=== PATIENT | male | born 2005 | race Caucasian/White ===

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

== ENCOUNTER 2024-10-16 23:26 | Emergency (ER) | payer SELFPAY ==
[2024-10-16 23:29] VITALS: BP 141/97; PULSE 124; RESP 18; TEMP 36.4; O2SAT 93
[2024-10-16 23:44] VITALS: BP 141/97; PULSE 124; RESP 18; TEMP 36.4; O2SAT 93
[2024-10-16] MEDS: Ondansetron 4 MG/2 ML VIAL (23:46)
[2024-10-16] MEDS: Droperidol 5 MG/2 ML VIAL 1.25 MG IVP (23:50)
[2024-10-16] MEDS: Normal Saline 1,000 ML 1000 ML IV (23:50)
[2024-10-16 23:52] LABS: Abs Immature Grans 0.05 10^3/uL (0.0-0.06); Absolute Basophil Count 0.06 10^3/uL (0.0-0.2); Absolute Neutrophil Count 16.24 10^3/uL (1.2-6.7); Basophils % 0.3 %; Eosinophils % 1.6 %; HCT 53.9 % (40.0-50.0); HGB 18.2 g/dL (13.5-17.5); Immature Grans % 0.3 %; Lymphocytes % 6.4 %; MCH 28.6 pg (27.0-33.0); MCHC 33.8 % (32.0-36.0); MCV 85 fL (80-95); MPV 9.8 fL (8.0-11.0); Monocytes % 5.3 %; Neutrophils % 86.1 %; Platelet Count 341 10^3/uL (130-400); RBC 6.36 10^6/uL (4.36-5.78); RDW 11.9 % (11.8-14.1); RDW-SD 36.4 fL; WBC 18.86 10^3/uL (4.4-10.8)
[2024-10-16 23:56] LABS: Absolute Lymphocyte Count 1.21 10^3/uL (1.2-3.4)
[2024-10-17 00:10] LABS: ALT 17 U/L (16-63); AST 9 U/L (15-37); Albumin 5.3 g/dL (3.4-5.0); Alkaline Phosphatase 97 U/L (46-116); Anion Gap 8.6 mmol/L (3-11); BUN 18 mg/dL (7-18); CO2 32.4 mmol/L (21.0-32.0); CREATININE 1.1 mg/dL (0.70-1.30); Chloride 104 mmol/L (98-107); Estimated GFR 98.56 (mL/min/1.73m2); Glucose 139 mg/dL (74-106); Lipase 41 U/L (<78); Potassium 4.1 mmol/L (3.5-5.1); Sodium 145 mmol/L (136-145); Total Protein 9.1 g/dL (6.4-8.2)
[2024-10-17 00:16] LABS: Calcium 10.8 mg/dL (8.5-10.1)
[2024-10-17 00:47] LABS: Diff Comment RBC Morph Reviewed; RBC Morphology Normal
[2024-10-17 01:40] VITALS: BP 138/88; PULSE 95; RESP 16; TEMP 36.6; O2SAT 98
--- NOTE | 2024-10-17 01:43 | ED.GENADUL_ITS ---
Discharge Plan Disposition Patient Disposition: Home Condition: Good Discharge Details Clinical Impression: Vomiting Primary Care Provider: Amarilis,Local ED Provider: Cj Torres Home Meds and New Rx's Prescriptions: No Action No Known Home Meds Discharge Instructions Instructions: Nausea and Vomiting, Adult ED Additional Instructions: At this time after fluids and medication you have had a notable improvement. You have been able to tolerate fluids well. Your labs have returned, and while you do show a mildly elevated white count, the rest of your labs remained stable after hydration. Thankfully on your exam there is no evidence of tenderness in the right lower quadrant to suggest appendicitis. Your lipase is normal and so there is no evidence of pancreatitis. I suspect that your symptoms may have been secondary to something that you ate this evening. It could also been from a mild viral etiology. Please drink plenty of fluids and stay well-hydrated. Take the Zofran as needed for nausea. Stick with a mild bland liquid diet for the next day or 2. If you notice any worsening of your symptoms, or any new symptoms such as vomiting, diarrhea, fever, chills, shortness of breath, chest pain, numbness, weakness, or fainting , please return immediately to the emergency department for reevaluation. Please follow up with your primary care provider as soon as possible for reassessment and reevaluation. As always, it was a pleasure participating in your medical care today. HPI General Date/Time Provider Initiated Documentation: 10/16/24 23:45 . HPI Narrative: 19-year-old male with a past medical history of occasional cannabis use, prior surgery for hydronephrosis as a young child, presents today for evaluation of vomiting. Patient states that today his diet consisted of a significant amount of sugar cookies, some Ramen soup, and then this evening at about 630 he developed mild achy cramps throughout his abdomen began having multiple episodes of vomiting. He has vomited multiple times throughout the evening. He has not been able to keep anything down. He denies any blood. He denies any bloody diarrhea. No other complaints at this time. He drank some alcohol yesterday. He admits to mild achiness throughout, but he denies any locality or focality to the right lower quadrant. No other complaints. Related Data Home Medications ?Medication ?Instructions ?Recorded ?Confirmed Unknown [No Known Home Meds] 10/16/24 10/16/24 Allergies Allergy/AdvReac Type Severity Reaction Status Date / Time No Known Allergies Allergy Verified 10/16/24 23:49 General Stated Complaint: Nausea/Vomit/Diar JACQUELIN: 3 Exam Narrative Exam Narrative: 1.Const: Well-nourished, Well-developed, appearing stated age 2.Eyes: PERRL, no conjunctival injection, and symmetrical lids. 3.ENT: Atraumatic external nose and ears. Notably dry MM. Neck: Symmetric, trachea midline, No thyromegaly. 4.CVS: +S1/S2, Peripheral pulses 2+ and equal in all extremities. Brisk capillary refill in all extremities. 5.RESP: Unlabored respiratory effort. Clear to auscultation bilaterally. No wheezes rales or rhonchi 6.GI: Soft, nondistended, reduced bowel sounds. Minimal achiness throughout. But no pain in the right lower quadrant or left lower quadrant. 7.MSK: Normocephalic/Atraumatic, Extremities w/o deformity or ttp No cyanosis or clubbing, Normal movement of all extremities 8.Skin: Warm, Dry. No rashes or lesions. 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 Sensation grossly intact, no focal neurologic deficits. 10.Psych: (AAO) x3. Appropriate mood and affect Course Vital Signs Vital signs: Vital Signs Temperature 36.4 C 10/16/24 23:29 Pulse 124 H 10/16/24 23:29 Respiratory Rate 18 10/16/24 23:29 Blood Pressure 141/97 H 10/16/24 23:29 Pulse Oximetry 93 10/16/24 23:29 Temperature 36.6 C 10/17/24 01:40 Temperature Source Temporal Artery Scan 10/16/24 23:44 Pulse 95 H 10/17/24 01:40 Respiratory Rate 16 10/17/24 01:40 Blood Pressure 138/88 10/17/24 01:40 Blood Pressure Position Sitting 10/16/24 23:44 Pulse Oximetry 98 10/17/24 01:40 Oxygen Delivery Method Room Air 10/16/24 23:44 Oxygen Flow Rate 0 10/16/24 23:29 Pain Level 4 10/16/24 23:44 Lab/Test Results Lab/Test Results: Laboratory Tests Range/Units 10/16/24 23:40 WBC (4.4-10.8) 10^3/uL 18.86 H RBC (4.36-5.78) 10^6/uL 6.36 H Hgb (13.5-17.5) g/dL 18.2 H Hct (40.0-50.0) % 53.9 H MCV (80-95) fL 85 MCH (27.0-33.0) pg 28.6 MCHC (32.0-36.0) % 33.8 RDW (11.8-14.1) % 11.9 Plt Count (130-400) 10^3/uL 341 MPV (8.0-11.0) fL 9.8 Immature Gran % % 0.3 Neutrophils % % 86.1 Lymphocytes % % 6.4 Monocytes % % 5.3 Eosinophils % % 1.6 Basophils % % 0.3 Nucleated RBC % (0.0-0.3) % 0.0 Absolute Neutrophils (1.2-6.7) 10^3/uL 16.24 H Absolute Lymphocytes (1.2-3.4) 10^3/uL 1.21 Absolute Monocytes (0.1-0.8) 10^3/uL 1.00 H Absolute Eosinophils (0.0-0.7) 10^3/uL 0.30 Absolute Basophils (0.0-0.2) 10^3/uL 0.06 RBC Morphology Normal Sodium (136-145) mmol/L 145 Potassium (3.5-5.1) mmol/L 4.1 Chloride (98-107) mmol/L 104 Carbon Dioxide (21.0-32.0) mmol/L 32.4 H Anion Gap (3-11) mmol/L 8.6 BUN (7-18) mg/dL 18 Creatinine (0.70-1.30) mg/dL 1.1 Est GFR (CKD-EPI 2020) (mL/min/1.73m2) 98.56 Glucose (74-106) mg/dL 139 H Calcium (8.5-10.1) mg/dL 10.8 H Total Bilirubin (0.2-1.0) mg/dL 0.50 AST (15-37) U/L 9 L ALT (16-63) U/L 17 Alkaline Phosphatase (46-116) U/L 97 Total Protein (6.4-8.2) g/dL 9.1 H Albumin (3.4-5.0) g/dL 5.3 H Lipase (<78) U/L 41 Medical Decision Making 19-year-old male with a past medical history of occasional cannabis use, prior surgery for hydronephrosis as a young child, presents today for eval uation of vomiting. Patient states that today his diet consisted of a significant amount of sugar cookies, some Ramen soup, and then this evening at about 630 he developed mild achy cramps throughout his abdomen began having multiple episodes of vomiting. He has vomited multiple times throughout the evening. He has not been able to keep anything down. He denies any blood. He denies any bloody diarrhea. No other complaints at this time. He drank some alcohol yesterday. He admits to mild achiness throughout, but he denies any locality or focality to the right lower quadrant. No other complaints. Exam demonstrates dry mucous membranes, mild achiness throughout the abdomen, but no right lower quadrant tenderness to suggest appendicitis. No abdominal distention to suggest obstruction, and no signs of an acute surgical abdomen. Symptoms appear most consistent from a gastroenteritis potentially from a virus or foodborne illness. Cannabinoid hyperemesis syndrome is on the differential but less likely. We will treat with Zofran and droperidol, rehydrate with a liter of normal saline, check for pancreatitis electrolyte abnormalities, monitor closely and reassess. 1:53 AM Laboratory workup has returned, patient does show evidence of an elevated white count with mild left shift but no evidence of bandemia. Electrolytes relatively benign, calcium slightly elevated to 10.8, which has been treated with a liter of normal saline. Glucose normal. Lipase normal, transaminases normal. On reassessment patient has complete resolution of his symptoms. Nausea has resolved. He has no abdominal pain. Repeat focused abdominal exam was performed and he has no tenderness whatsoever, no tenderness in the right lower or left lower quadrants. He states that he feels well and would like to go home. Patient was still observed for an additional hour, he was given a p.o. trial and tolerated this well with no vomiting. Patient will be discharged home with Zofran. Discussed bland diet. Discussed red flags which to return. Symptoms at this time appear clinically inconsistent with appendicitis, pancreatitis, volvulus or obstruction. I have extensively reviewed the treatme nt plan and discharge instructions with the patient and their family. I have addressed all patient concerns at this time. The patient and family was made aware of what symptoms to monitor for that would warrant a return to the emergency department. Discussed the plan with the patient and family, they demonstrate verbal understanding and agreement with our assessment and plan at this time. The documentation in this chart was dictated using [employer] dictation software. Please excuse any dictation errors. Quality:SDOH Health Related Social Needs: No Data to Display PFSH All Active Problems (Updated 10/17/24 @ 01:44 by Cj Torres DO) Vomiting (Acute) Abscess of finger, left (Acute) Social History Smoking/Tobacco Use Status: Never Smoking risk assessment performed?: Yes Alcohol Intake: current Drug use: Never Substance use type: marijuana Details: last used marijuana earlier today 10/16/24 Housing: house Do you feel safe at home: Yes (FATHER IN [employer]) Do you feel safe in your relationship?: Yes
[2024-10-17] MEDS: Ondansetron O.D.T. 4 MG TABEF, 3 TABS/BTL PO (01:47)
== END 2024-10-17 01:40 | disposition home or self-care (01) ==
PROVIDERS: Emergency Provider Student in an Organized Health Care Education/Training Program
DX: R11.10 Vomiting, unspecified (principal)
CPT/HCPCS: 36415; 80053; 83690; 96361; 96374; 99284; 85025; J1790; J2405

== ENCOUNTER 2025-05-21 05:40 | Emergency (ER) | payer SELFPAY ==
[2025-05-21] VITALS (16 sets, daily range): BP systolic 130–171; BP diastolic 92–97; PULSE 59–89; RESP 13–25; TEMP 36.3; O2SAT 95–99
--- NOTE | 2025-05-21 05:30 | RT.EKG_ITS ---
APPROVED REPORT Exam: Resting ECG Reason for Exam: irregular heart beat Patient Location: E HR:69 bpm ECG Measurements Heart Rate 69 AXIS VA 147 P 79 QRSd 93 QRS 75 QT 387 T 69 QTc 414 Conclusion Sinus arrhythmia...V-rate 59- 82, variation>10% ST elevation suggests acute pericarditis...ST >0.10mV, ant/lat/inf
--- NOTE | 2025-05-21 06:00 | DI.RAD_ITS ---
Exam(s) XR CHEST 2V PA LATERAL EXAM: XR CHEST 2V PA LATERAL CLINICAL HISTORY: chest pain. TECHNIQUE: 2D digital imaging was performed. COMPARISON: No exams were available for comparison FINDINGS: 2 views: Heart size is normal. The mediastinum is not widened. Lungs are clear. No infiltrates nor pleural effusions. IMPRESSION: No acute pulmonary findings. DATA REPOSITORY: RADIATION DOSE DELIVERED:
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
[2025-05-21 06:50] LABS: Abs Immature Grans 0.01 10^3/uL (0.0-0.06); HCT 43.6 % (40.0-50.0); HGB 15.7 g/dL (13.5-17.5); Immature Grans % 0.1 %; MCH 28.5 pg (27.0-33.0); MCHC 36.0 % (32.0-36.0); MCV 79 fL (80-95); MPV 9.9 fL (8.0-11.0); Platelet Count 331 10^3/uL (130-400); RBC 5.50 10^6/uL (4.36-5.78); RDW 11.4 % (11.8-14.1); RDW-SD 32.7 fL; WBC 7.29 10^3/uL (4.4-10.8)
[2025-05-21 07:04] LABS: ESR < 1 mm/hr (0-15)
[2025-05-21 07:07] LABS: ALT 22 U/L (16-63); AST 14 U/L (15-37); Albumin 4.7 g/dL (3.4-5.0); Alkaline Phosphatase 75 U/L (46-116); Anion Gap 9.7 mmol/L (3-11); BUN 11 mg/dL (7-18); Bilirubin, Total 1.1 mg/dL (0.2-1.0); CO2 28.3 mmol/L (21.0-32.0); Calcium 9.9 mg/dL (8.5-10.1); Chloride 102 mmol/L (98-107); Estimated GFR 124.61 (mL/min/1.73m2); Glucose 114 mg/dL (74-106); Magnesium 2.0 mg/dL (1.8-2.4); Potassium 4.0 mmol/L (3.5-5.1); Sodium 140 mmol/L (136-145); TSH (W/Ref FT4) 1.82 uIU/mL (0.36-3.74); Total Protein 7.7 g/dL (6.4-8.2); Troponin I 8 ng/L (<or=76)
--- NOTE | 2025-05-21 07:18 | DI.VRAD_ITS ---
PROCEDURE INFORMATION: Exam: XR Chest Exam date and time: 05/21/2025 6:35 AM Age: 20 years old Clinical indication: Chest pressure; Chest pain TECHNIQUE: Imaging protocol: Radiologic exam of the chest. Views: 2 views. COMPARISON: No relevant prior studies available. FINDINGS: Lungs: Unremarkable. No consolidation. Pleural spaces: Unremarkable. No pleural effusion. No pneumothorax. Heart/Mediastinum: Unremarkable. No cardiomegaly. Bones/joints: Unremarkable. IMPRESSION: No acute findings. Dictated and Authenticated by: Erica Lay MD. Orderin Mereidth Montano MD
--- NOTE | 2025-05-21 07:19 | W.EDPROG ---
Date of service: 05/21/25 Time of Service: 07:19 Medical Decision Making Was asked to perform bedside POCUS secondary to ED volume. Bedside POCUS was performed, no evidence of pericardial effusion, reduced ejection fraction, no abnormality could be seen on limited bedside echo. Findings were discussed with attending Dr. Sinai Harper Discharge Plan Discharge Details Chief Complaint: Palpitatns Primary Care Provider: Amarilis,Local ED Provider: Charmaine Harper Home Meds and New Rx's Prescriptions: No Action hydroxyzine HCl 25 mg tablet 25 mg PO TID PRN trazodone .ROUTE POCUS Exam (ED) Limited Cardiac Exam DATE OF EXAM: 05/21/25 TIME OF EXAM: 07:21 PROVIDER THAT PERFORMED THE STUDY: Cj Torres IS THIS A REPEAT EXAM DURING THIS ENCOUNTER: no REASON FOR EXAM: Chest pain VISUALIZED STRUCTURES: Left atrium, Left ventricle, Right ventricle, Aortic valve, Mitral valve and Interventricular septum VIEW OBTAINED: Parasternal long-axis and Parasternal short-axis PERTINENT FINDINGS/IMPRESSION: No apparent abnormalities Exam complete
[2025-05-21 07:21] LABS: Troponin I 7 ng/L (<or=76)
[2025-05-21 07:31] LABS: C-Reactive Protein < 0.50 mg/dL (<or=0.5)
[2025-05-21] MEDS: Ketorolac 15 MG/ML VIAL IV (07:39)
== END 2025-05-21 08:15 | disposition home or self-care (01) ==
PROVIDERS: Emergency Provider Student in an Organized Health Care Education/Training Program
DX: I31.9 Disease of pericardium, unspecified (principal); R07.9 Chest pain, unspecified; R03.0 Elevated blood-pressure reading, without diagnosis of hypertension
CPT/HCPCS: 99284 ×2; 96374; 36415; 00123; 80053; 85652; 93005; 93308; 71046; 83735; 84443; 84484; 85025; 86140; 93010; J1885